=== PATIENT | female | born 1945 | race Hispanic/Latino ===

== ENCOUNTER 2018-10-27 20:21 | Emergency (ER) | payer BC, MEDICARE ==
[2018-10-27] MEDS ORDERED: IBUPROFEN PO ONE (20:26)
[2018-10-27] MEDS ORDERED: NACL 0.9% IR ONE ×2 (20:26→23:58)
--- NOTE | 2018-10-27 20:26 | Event Note ---
ED Screening Note ED Screening Note: dog bite b hands tdap utd family dog This initial assessment/diagnostic orders/clinical plan/treatment(s) is/are subject to change based on patients health status, clinical progression and re- assessment by fellow clinical providers in the ED. Further treatment and workup at subsequent clinical providers discretion. Patient/guardian urged not to elope from the ED as their condition may be serious if not clinically assessed and managed. Initial orders include: wound care antibiotics
[2018-10-27] MEDS ORDERED: ANTIBIOTIC OINT TP ONE (22:44)
--- NOTE | 2018-10-27 23:36 | XRay Report ---
BILATERAL HANDS 6 VIEWS INDICATION / CLINICAL INFORMATION: Dog bites involving both hands 4 hours ago. COMPARISON: None available. FINDINGS: BONES / JOINT(S): There are mild degenerative changes involving multiple interphalangeal joints and t he first metacarpophalangeal joints bilaterally. There is no evidence of fracture, or dislocation. SOFT TISSUES: I do not identify a radiopaque foreign body. ADDITIONAL FINDINGS: None. IMPRESSION: No acute abnormality. Signer Name: Fortino Ram MD Signed: 10/27/2018 11:31 PM Workstation Name: [id number]
--- NOTE | 2018-10-27 23:58 | Emergency Department Report ---
ED Animal Bite HPI - General Chief Complaint: Animal Bite Stated Complaint: BITE BY DOG ON BOTH HANDS Time Seen by Provider: 10/27/18 20:25 Source: patient Mode of arrival: Ambulatory Limitations: No Limitations - History of Present Illness Initial Comments: Patient is a 73-year-old female presents to the emergency room with complaints of dog bite to her bilateral hands that occurred around 7 PM tonight. She states it was her dog that bit her. Pt states the dog's immunizations are up-to-date. 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 she states it is a small dog. She states her last tetanus immunization was in 2017. Patient has lacerations, abrasions, puncture wounds to the bilateral hands. She denies any past medical history or allergies to medications. - Related Data Previous Rx's Medication Instructions Recorded Last Taken Type Amoxicillin/Potassium Clav 1 each PO BID 7 Days #14 tablet 10/28/18 Unknown Rx [Augmentin 875-125 Tablet] Bacitracin Zinc Oint [Antibiotic 1 applicatio TP BID #1 oint...g. 10/28/18 Unknown Rx Oint] ED Review of Systems ROS: Stated complaint: BITE BY DOG ON BOTH HANDS Other details as noted in HPI Comment: All other systems reviewed and negative ED Past Medical Hx - Past Medical History Hx Hypertension: Yes Hx GERD: Yes Additional medical history: high cholesterol - Surgical History Past Surgical History?: Yes Hx Cholecystectomy: Yes Hx Appendectomy: Yes Additional Surgical History: hysterectomy, bladder sx, eye sx, knee replacemetn - Social History Smoking Status: Never Smoker Substance Use Type: None - Medications Home Medications: Home Medications Medication Instructions Recorded Confirmed Last Taken Type Amoxicillin/Potassium Clav 1 each PO BID 7 Days #14 tablet 10/28/18 Unknown Rx [Augmentin 875-125 Tablet] Bacitracin Zinc Oint [Antibiotic 1 applicatio TP BID #1 oint...g. 10/28/18 Unknown Rx Oint] ED Physical Exam - General Limitations: No Limitations General appearance: alert, in no apparent distress - Head Head exam: Present: atraumatic, normocephalic - Eye Eye exam: Present: normal appearance - ENT ENT exam: Present: mucous membranes moist - Extremities Exam Extremities exam: Present: other (1 cm laceration to the dorsal surface of the left pinky, pt has FROM of the left pinky, there is a skin flap present, once the flap is pulled back the tendon sheath is visible, no tendon involvement, tendon is intact, no foregin body, abrasions present to the left ring finger and middle finger, small laceration to the right middle finger, appears superficial only through the dermis and epidermis, puncture wound present to the right palmar surface of the hand, small abrasions in multiple areas to the bilateral hands) - Neurological Exam Neurological exam: Present: alert, oriented X3 - Psychiatric Psychiatric exam: Present: normal affect, normal mood - Skin Skin exam: Present: warm, dry ED Course Vital Signs 10/27/18 10/28/18 20:29 00:47 Temperature 98.0 F 97.7 F Pulse Rate 92 H 69 Respiratory 18 20 Rate Blood Pressure 140/68 Blood Pressure 123/48 [Right] O2 Sat by Pulse 100 98 Oximetry - Reevaluation(s) Reevaluation #1: MDM: Patient is a 73-year-old female presents to the emergency room with complaints of dog bite to her bilateral hands that occurred around 7 PM tonight. She states it was her dog that bit her. Pt states the dog's immunizations are up-to-date. 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 she states it is a small dog. She states her last tetanus immunization was in 2017. Patient has lacerations, abrasions, puncture wounds to the bilateral hands. She denies any past medical history or allergies to medications. VSS. XR of the bilateral hands with no acute process. on exam: 1 cm laceration to the dorsal surface of the left pinky, pt has FROM of the left pinky, there is a skin flap present, once the flap is pulled back the tendon sheath is visible, no tendon involvement, tendon is intact, no foregin body, abrasions present to the left ring finger and middle finger, small laceration to the right middle finger, appears superficial only through the dermis and epidermis, puncture wound present to the right palmar surface of the hand, small abrasions in multiple areas to the bilateral hands. lacerations were not repaired due to high potential for infection due to animal bite. pts wounds irrigated with 500 cc of saline and fully washed out with a bottle of betadine. pts wounds covered with bacitracin ointment and dressed. pt placed on augmentin. discussed with pt to follow up with general surgery in the next 2-3 days for reevaluation. advised to please use medication as prescribed. Please keep areas clean and dry and covered. No hot tub, pool, or soaking in water. Wash around with the areas with soap and water and immediately dry them off. Follow-up with a general surgeon in the next 2-3 days. Return to the emergency room for any new or worsening symptoms or any signs of infection despite antibiotic therapy. Critical care attestation.: If time is entered above; I have spent that time in minutes in the direct care of this critically ill patient, excluding procedure time. ED Disposition Clinical Impression: Animal bite, Laceration, Abrasion Disposition: - TO HOME OR SELFCARE Is pt being admited?: No Does the pt Need Aspirin: No Condition: Stable Instructions: Animal Bite (ED), Laceration (ED), Abrasion (ED) Additional Instructions: please use medication as prescribed. Please keep areas clean and dry and covered. No hot tub, pool, or soaking in water. Wash around with the areas with soap and water and immediately dry them off. Follow-up with a general surgeon in the next 2-3 days. Return to the emergency room for any new or worsening symptoms or any signs of infection despite antibiotic therapy. Prescriptions: Bacitracin Zinc Oint [Antibiotic Oint] 1 applicatio TP BID #1 oint...g. Amoxicillin/Potassium Clav [Augmentin 875-125 Tablet] 1 each PO BID 7 Days #14 tablet Referrals: INNA RUBY MD [Primary Care Provider] - 2-3 Days KELI LEBRON DO [Staff Physician] - 2-3 Days SUMEET HEREDIA MD [Staff Physician] - 2-3 Days Time of Disposition: 00:11 Print Language: ARABIC
[2018-10-28] MEDS ORDERED: NACL 0.9% 500 ML IR ONE (00:02)
[2018-10-28 00:51] VITALS: BP 123/48
== END 2018-10-28 00:55 | disposition home or self-care (01) ==
LOC: ED 20:21
DX: S61.412A Laceration without foreign body of left hand, initial encounter (principal); S61.411A Laceration without foreign body of right hand, initial encounter; I10 Essential (primary) hypertension; K21.9 Gastro-esophageal reflux disease without esophagitis; E78.00 Pure hypercholesterolemia, unspecified; Z90.49 Acquired absence of other specified parts of digestive tract; Z90.89 Acquired absence of other organs; Z90.710 Acquired absence of both cervix and uterus; W54.0XXA Bitten by dog, initial encounter; Y93.89 Activity, other specified; Y92.89 Other specified places as the place of occurrence of the external cause; Y99.8 Other external cause status